=== PATIENT | female | born 1990 | race Two or more races ===

== ENCOUNTER → 2019-05-17 | Outpatient (CLI) | payer OTHER | END | disposition home or self-care (01) | LOC: PRENATAL 11:00 | DX: O99.89 Other specified diseases and conditions complicating pregnancy, childbirth and the puerperium (principal); O35.3XX1 Maternal care for (suspected) damage to fetus from viral disease in mother, fetus 1 ==

== ENCOUNTER 2019-07-23 03:34 | Outpatient (CLI) | payer OTHER | END 2019-07-23 15:50 | disposition home or self-care (01) | LOC: OBS/DEL 03:34 | PROVIDERS: ATTEND Obstetrics & Gynecology | DX: O47.1 False labor at or after 37 completed weeks of gestation (principal) ==